=== PATIENT | male | born 1940 | race Two or more races ===

== ENCOUNTER 2018-06-04 17:37 | Emergency (ER) | payer MEDICARE, OTHER ==
[~2018-06-04] VITALS: Ht 167.6 cm; Wt 59.6 kg
[~2018-06-04 17:37] MED LIST: ALBU18HF INH; AMLO-150 PO; AMOX1TAB12 PO; CARV3.122 PO; DOCU-131 PO; DOXY100T PO; ENOX40SY4 SQ; ERGO500017 PO; GLIP2.5T16 PO; HYDR-3240 PO; IPRA3AMP30 INH; LINA5TAB PO; LISI-170 PO; METH500T7 PO; OMEP-110 PO; OXYC5TAB2 PO; SIMV20TA PO; TAMS0.4C2 PO; TRAM50TA2 PO
--- NOTE | 2018-06-04 18:07 | NUR ---
pt to ed with daughter for glf yesterday morning at 0800. pt tripped and fell on hip. pt currently in xray. daughter able to give accurate history of event. awaiting md assessment and xray results at this time.
--- NOTE | 2018-06-04 18:35 | NUR ---
md to bedside for assessment.
[2018-06-04] MEDS ORDERED: ONDANSETRON ODT 4 MG ONE (18:50)
[2018-06-04] MEDS ORDERED: HYDROcodone/APAP 5/325 TABLET ONE (18:50)
--- NOTE | 2018-06-04 18:55 | NUR ---
pt medicated per mar. no needs at this time.
[2018-06-04] MEDS ORDERED: ONDANSETRON ODT 4 MG PO ONE (19:00)
[2018-06-04] MEDS ORDERED: HYDROcodone/APAP 5/325 TABLET PO ONE (19:00)
--- NOTE | 2018-06-04 19:41 | NUR ---
pt resting in bed. no needs at this time. all results back. chart up for recheck.
--- NOTE | 2018-06-04 20:05 | NUR ---
pt to ct at this time.
--- NOTE | 2018-06-04 20:17 | NUR ---
pt back from ct.
--- NOTE | 2018-06-04 21:00 | NUR ---
all results back at this time. chart up for recheck. pt resting in room with daughter at bedside. no needs at this time.
[2018-06-04 21:17] VITALS: BP 128/78
--- NOTE | 2018-06-04 21:55 | NUR ---
md to bedside for updates.
[2018-06-04] MEDS ORDERED: LIDODERM 5% PATCH TD ONE (22:00)
== END 2018-06-04 22:16 | disposition home or self-care (01) ==
LOC: ED 19:34
DX: G89.11 Acute pain due to trauma (principal); M54.5 Low back pain; E11.9 Type 2 diabetes mellitus without complications; I10 Essential (primary) hypertension; F17.200 Nicotine dependence, unspecified, uncomplicated; W01.0XXA Fall on same level from slipping, tripping and stumbling without subsequent striking against object, initial encounter; Y93.89 Activity, other specified; Y92.094 Garage of other non-institutional residence as the place of occurrence of the external cause; Y99.8 Other external cause status
CPT/HCPCS: 72110; 72131; 72192; 72220; 99284; Q0162

== ENCOUNTER 2020-02-04 12:37 | Emergency (ER) | payer MEDICARE, OTHER ==
[~2020-02-04] VITALS: Ht 162.6 cm; Wt 64.0 kg
[2020-02-04 13:15] LABS: BASOPHILS % (AUTO) 1 % (0-1); EOSINOPHILS % (AUTO) 0 % (1-7); LYMPHOCYTES % (AUTO) 6 % (22-44); MEAN CORPUSCULAR HEMOGLOBIN 30.9 pg (27.5-34.5); MEAN PLATELET VOLUME 7.9 fL (7.4-10.4); MONOCYTES % (AUTO) 5 % (2-9); NEUTROPHILS % (AUTO) 89 % (42-75); PLATELET COUNT 212 x10^3/uL (130-400); RED BLOOD COUNT 3.76 x10^6/uL (4.38-5.82); RED CELL DISTRIBUTION WIDTH 14.5 % (9.4-14.8)
[2020-02-04 13:17] LABS: MD NO
[2020-02-04 13:28] LABS: ALANINE AMINOTRANSFERASE 16 U/L (12-78); ALBUMIN 3.4 g/dL (3.4-5.0); ANION GAP 7 mmol/L (5-15); CHLORIDE 112 mmol/L (98-107)
[2020-02-04 13:30] LABS: ALKALINE PHOSPHATASE 78 U/L (45-117); BILIRUBIN,TOTAL 0.8 mg/dL (0.2-1.0); TOTAL PROTEIN 7.3 g/dL (6.4-8.2)
--- NOTE | 2020-02-04 14:15 | NUR ---
[employer] HELPER: PT TO ROOM FROM LOBBY VIA W/C
--- NOTE | 2020-02-04 15:11 | NUR ---
BLADDER SCANNER 169 ML
--- NOTE | 2020-02-04 15:13 | NUR ---
PT TO ROOM 18 W/ C/O DRIBBLING URINE AND HEMATURIA. PER FAMILY MEMBER PT HAS HX PROSTATE ISSUES. PT RESTING ON GURNEY. NADN. MONITORS IN PLACE. VSS. ERP DR. BREWER NOTIFIED OF PT BLADDER SCANNER RESULTS.
--- NOTE | 2020-02-04 15:22 | NUR ---
PER ERP DR. BREWER HOLD OFF ON PADILLA CATHETER INSERTION. NEW ORDERS FOR IVF AND CT.
[2020-02-04] MEDS ORDERED: SODIUM CHLORIDE 0.9% 1,000ML IVBOLUS ONE (15:30)
[2020-02-04] MEDS ORDERED: SODIUM CHLORIDE FLUSH 10ML SYR IVF ONE (15:30)
--- NOTE | 2020-02-04 15:58 | NUR ---
PT TAKEN TO CT IN STABLE CONDITION.
--- NOTE | 2020-02-04 16:36 | NUR ---
PT BLADDER SCANNER AFTER 1L NS 218 ML. ERP AWARE. PADILLA TO BE PLACED.
[2020-02-04] MEDS ORDERED: LIDOCAINE 2%,20 ML JEL.PF.APP MM ONE (17:05)
--- NOTE | 2020-02-04 17:24 | NUR ---
PT RESTING ON GURRISSA. NADN. VSS. PADILLA INSERTED PER ERP. PT YEVGENIY WELL.
[2020-02-04 17:46] LABS: MICROSCOPIC AUTO
[2020-02-04 18:26] VITALS: BP 161/71
--- NOTE | 2020-02-04 18:26 | NUR ---
PT RESTING ON GURNEY. NADN. VSS. PT PADILLA NOTED TO HAVE BLOOD TINGED URINE AND MILD DARK RED BLEEDING AROUND PADILLA INSERTION SITE AROUND PENIS. ERP DR. BREWER AT BEDSIDE FOR ASSESSMENT. UROLOGY TO BE CONSULTED.
[2020-02-04] MEDS ORDERED: SULFAMETH./TRIMETHOPRIM DS 800MG/160MG TABLET PO ONE (19:00)
== END 2020-02-04 18:58 | disposition home or self-care (01) ==
LOC: ED 14:57
DX: R31.0 Gross hematuria (principal); R33.9 Retention of urine, unspecified; I10 Essential (primary) hypertension; E11.65 Type 2 diabetes mellitus with hyperglycemia; E87.5 Hyperkalemia; F17.200 Nicotine dependence, unspecified, uncomplicated
CPT/HCPCS: 36415; 51702; 74176; 80053; 81001; 85025; 87077; 87086; 87186; 96360; 99285; J7030

== ENCOUNTER 2020-02-10 07:14 | Emergency (ER) | payer MEDICARE ==
[~2020-02-10] VITALS: Ht 160 cm; Wt 63.6 kg
[2020-02-10] MEDS ORDERED: MORPHINE SULFATE 4 MG/ML, 1ML IVPush PRN (08:00)
[2020-02-10] MEDS ORDERED: ONDANSETRON ODT 4 MG PO ONE (08:00)
[2020-02-10] MEDS ORDERED: SODIUM CHLORIDE FLUSH 10ML SYR IVF ONE (08:00)
--- NOTE | 2020-02-10 08:01 | NUR ---
IV PLACED. PT TO IMAGING PRIOR TO BEING MEDICATED.
[2020-02-10 08:04] LABS: BASOPHILS % (AUTO) 1 % (0-1); EOSINOPHILS % (AUTO) 7 % (1-7); LYMPHOCYTES % (AUTO) 11 % (22-44); MEAN CORPUSCULAR HEMOGLOBIN 30.7 pg (27.5-34.5); MEAN CORPUSCULAR HGB CONC 32.8 g/dL (33.2-36.2); MEAN PLATELET VOLUME 7.4 fL (7.4-10.4); MONOCYTES % (AUTO) 8 % (2-9); NEUTROPHILS % (AUTO) 74 % (42-75); PLATELET COUNT 307 x10^3/uL (130-400); RED CELL DISTRIBUTION WIDTH 14.5 % (9.4-14.8)
[2020-02-10] MEDS ORDERED: ONDANSETRON ODT 4 MG ONE (08:04)
[2020-02-10] MEDS ORDERED: MORPHINE SULFATE 4 MG/ML, 1ML ONE (08:05)
[2020-02-10 08:16] LABS: ALANINE AMINOTRANSFERASE 18 U/L (12-78); ALBUMIN 3.1 g/dL (3.4-5.0); ANION GAP 5 mmol/L (5-15); CHLORIDE 113 mmol/L (98-107); CREATININE 2.94 mg/dL (0.7-1.3)
[2020-02-10 08:19] LABS: ALKALINE PHOSPHATASE 79 U/L (45-117); BILIRUBIN,TOTAL 0.4 mg/dL (0.2-1.0); TOTAL PROTEIN 7.7 g/dL (6.4-8.2)
[2020-02-10 08:27] LABS: MD SCAN
--- NOTE | 2020-02-10 08:35 | NUR ---
PT RETURNED FROM IMAGING, DAUGHTER AT BEDSIDE. MEDICATED PER EMAR. PROVIDED WARM BLANKETS, FALL PRECAUTIONS IN PLACE, CALL LIGHT WITHIN REACH. NO ADDITIONAL NEEDS AT THIS TIME
--- NOTE | 2020-02-10 08:59 | NUR ---
PT AND DAUGHTER GIVEN IS INSTRUCTION. PT ABLE TO DEMONSTRATE PROPER USE. NO ADDITONAL QUESTIONS OR NEEDS AT THIS TIME.
[2020-02-10 09:32] VITALS: BP 130/55
--- NOTE | 2020-02-10 09:33 | NUR ---
Patient and daughter given discharge instructions and they have confirmed that they understand the instructions. Patient in wheelchair to d/c desk. Pt states pain has improved and is "gone".
== END 2020-02-10 09:39 | disposition home or self-care (01) ==
LOC: ED 07:49
DX: S22.41XA Multiple fractures of ribs, right side, initial encounter for closed fracture (principal); R94.31 Abnormal electrocardiogram [ECG] [EKG]; E11.65 Type 2 diabetes mellitus with hyperglycemia; I10 Essential (primary) hypertension; W01.0XXA Fall on same level from slipping, tripping and stumbling without subsequent striking against object, initial encounter; Y93.89 Activity, other specified; Y92.89 Other specified places as the place of occurrence of the external cause; Y99.8 Other external cause status
CPT/HCPCS: 36415; 71101; 72072; 80053; 85025; 93005; 96374; 99285; J2270; Q0162

== ENCOUNTER 2020-08-06 09:31 | Inpatient (IN) | payer MEDICARE ==
[~2020-08-06] VITALS: Ht 165.1 cm; Wt 58.0 kg
[~2020-08-06 09:31] MED LIST changes: +CEFD300C37 PO; +FINA5TAB4 PO; +GLIP2.5T3 PO; +HYDR-2214 PO; -HYDR-3240 PO; +LISI-167 PO; +METH-639 PO; -METH500T7 PO
--- NOTE | 2020-08-06 11:42 | NUR ---
STONE LAYER: PT TO ROOM FROM LOBBY VIA W/C
--- NOTE | 2020-08-06 11:47 | NUR ---
PT TO ROOM 12 VIA WC W/ C/O LEAKING PADILLA CATHETER. PER PT DAUGHTER PT HAS BEEN LEAKING THROUGH THE PADILLA BAG AND SHE IS UNAWARE FROM WHERE. STATES WHEN SHE CHECKS HIM THERE IS NO LEAKAGE FROM THE BAG. PT HAS NOT HAD ANY UO SINCE THIS AM. PT SHOWED UP WITHOUT PADILLA BAG. EDUCATED ON IMPORTANCE OF CLOSED SYSTEM TO PREVENT UTI. PT DAUGHTER VERBALIZES UNDERSTANDING. ERP DR. ALSTON AT BEDSIDE FOR EVAL.
[2020-08-06] MEDS ORDERED: SODIUM CHLORIDE FLUSH 10ML SYR IVF ONE (12:00)
[2020-08-06] MEDS ORDERED: SODIUM CHLORIDE 0.9% 1,000ML IVBOLUS ONE (12:00)
[2020-08-06 12:38] LABS: BASOPHILS % (AUTO) 1 % (0-1); EOSINOPHILS % (AUTO) 15 % (1-7); LYMPHOCYTES % (AUTO) 22 % (22-44); MEAN CORPUSCULAR HEMOGLOBIN 30.3 pg (27.5-34.5); MEAN PLATELET VOLUME 7.5 fL (7.4-10.4); MONOCYTES % (AUTO) 6 % (2-9); NEUTROPHILS % (AUTO) 56 % (42-75); PLATELET COUNT 327 x10^3/uL (130-400); RED BLOOD COUNT 4.08 x10^6/uL (4.38-5.82); RED CELL DISTRIBUTION WIDTH 15.2 % (9.4-14.8)
[2020-08-06 12:53] LABS: ALBUMIN 3.6 g/dL (3.4-5.0); CALCIUM 9.3 mg/dL (8.5-10.1); CHLORIDE 118 mmol/L (98-107); CREATININE 2.04 mg/dL (0.7-1.3)
[2020-08-06 13:06] LABS: MICROSCOPIC INDICATED
[2020-08-06 13:16] LABS: ANION GAP 3 mmol/L (5-15)
--- NOTE | 2020-08-06 13:24 | NUR ---
PT CHART REVIEWED AND PLACED FOR RECHECK.
[2020-08-06] MEDS ORDERED: CEFTRIAXONE PMX 1GM/50ML 50 ML IV ONE (14:00)
[2020-08-06] MEDS ORDERED: CEFTRIAXONE PMX 1GM/50ML 50 ML ONE (14:10)
[2020-08-06] MEDS ORDERED: PIOG15TA69 PO (14:21)
--- NOTE | 2020-08-06 14:21 | NUR ---
PT RESTING ON ARCHIE. KENNA. VSS. AWARE OF POC FOR ADMIT AND PT IS AGREEABLE.
--- NOTE | 2020-08-06 14:59 | NUR ---
REPORT GIVEN TO LACY PAYNE RN. ALL QUESTIONS ANSWERED. AWAITING PT TRANSPORT.
--- NOTE | 2020-08-06 15:14 | NUR ---
PT RESTING ON GURNEY. NADN. JOHNSON.
[2020-08-06] MEDS ORDERED: CEFTRIAXONE PMX 1GM/50ML 50 ML IV SCH (15:30)
[2020-08-06] MEDS ORDERED: ACETAMINOPHEN 325 MG TABLET PO PRN (15:30)
[2020-08-06] MEDS ORDERED: ONDANSETRON 2MG/ML, 2ML IVPush PRN (15:30)
[2020-08-06] MEDS ORDERED: ONDANSETRON ODT 4 MG PO PRN (15:30)
[2020-08-06] MEDS ORDERED: POLYETHYLENE GLYCOL 17 GM PACKET PO PRN (15:30)
[2020-08-06] MEDS ORDERED: NS + 20MEQ KCL 1,000 ML IV SCH (15:30)
[2020-08-06 16:11] VITALS: BP 172/74
[2020-08-06] MEDS: SODIUM CHLORIDE 0.9% 1,000 ML IV SCH ×2 (16:21→20:37)
[2020-08-06] MEDS: HEPARIN 5,000 UNITS/ML, 1ML SQ SCH ×2 (16:21→22:32)
[2020-08-06 20:26] VITALS: BP 145/65
[2020-08-06] MEDS: TAMSULOSIN 0.4 MG CAP.ER.24H PO SCH (20:41)
[2020-08-06] MEDS: SIMVASTATIN 20 MG TABLET PO SCH (20:42)
[2020-08-06] MEDS: CEFTRIAXONE PMX 1GM/50ML 50 ML IV SCH (22:18)
[2020-08-07 04:27] VITALS: BP 155/66
[2020-08-07 06:07] LABS: BASOPHILS % (AUTO) 1 % (0-1); CHLORIDE 119 mmol/L (98-107); EOSINOPHILS % (AUTO) 13 % (1-7); LYMPHOCYTES % (AUTO) 19 % (22-44); MEAN CORPUSCULAR HEMOGLOBIN 30.2 pg (27.5-34.5); MEAN CORPUSCULAR HGB CONC 32.9 g/dL (33.2-36.2); MEAN PLATELET VOLUME 7.7 fL (7.4-10.4); MONOCYTES % (AUTO) 6 % (2-9); NEUTROPHILS % (AUTO) 61 % (42-75); PLATELET COUNT 301 x10^3/uL (130-400); RED CELL DISTRIBUTION WIDTH 15.1 % (9.4-14.8)
[2020-08-07 06:15] LABS: ALANINE AMINOTRANSFERASE 9 U/L (12-78); ALBUMIN 2.9 g/dL (3.4-5.0); ALKALINE PHOSPHATASE 85 U/L (45-117); ANION GAP 2 mmol/L (5-15); BILIRUBIN,TOTAL 0.3 mg/dL (0.2-1.0); CALCIUM 8.5 mg/dL (8.5-10.1); CREATININE 1.57 mg/dL (0.7-1.3); TOTAL PROTEIN 6.7 g/dL (6.4-8.2)
[2020-08-07 07:36] VITALS: BP 154/73
[2020-08-07] MEDS: HEPARIN 5,000 UNITS/ML, 1ML SQ SCH ×2 (07:48→17:20)
[2020-08-07] MEDS: TAMSULOSIN 0.4 MG CAP.ER.24H PO SCH ×2 (09:25→20:41)
[2020-08-07] MEDS: SENNA/DOCUSATE TABLET PO SCH (09:25)
[2020-08-07] MEDS: FINASTERIDE 5 MG TABLET PO SCH (09:25)
[2020-08-07] MEDS ORDERED: DEXTROSE 50%, 50ML SYRINGE IVPush ONE (10:30)
[2020-08-07] MEDS ORDERED: CALCIUM GLUCONATE 0.46MEQ/1ML IVPush ONE (10:30)
[2020-08-07] MEDS ORDERED: INSULIN REGULAR 100 UNITS/ML, 3ML VIAL IVPush ONE (10:45)
[2020-08-07] MEDS ORDERED: CALCIUM GLUCONATE 4.6 MEQ in SODIUM CHLORIDE 0.9% 50 ML IV ONE (11:00)
[2020-08-07] MEDS ORDERED: SODIUM POLYSTYRENE SULFONATE ORAL SUSP PO ONE (11:00)
[2020-08-07] MEDS: SODIUM CHLORIDE 0.9% 1,000 ML IV SCH ×2 (11:09→20:41)
[2020-08-07 12:53] VITALS: BP 115/65
[2020-08-07 19:33] VITALS: BP 120/71
[2020-08-07] MEDS: SIMVASTATIN 20 MG TABLET PO SCH (20:41)
[2020-08-07] MEDS: CEFTRIAXONE PMX 1GM/50ML 50 ML IV SCH (22:42)
[2020-08-08 00:37] VITALS: BP 150/72
[2020-08-08] MEDS: HEPARIN 5,000 UNITS/ML, 1ML SQ SCH ×3 (01:14→17:19)
[2020-08-08 05:59] LABS: ANION GAP 3 mmol/L (5-15); CALCIUM 8.6 mg/dL (8.5-10.1); CHLORIDE 123 mmol/L (98-107); CREATININE 1.55 mg/dL (0.7-1.3)
[2020-08-08] MEDS: SODIUM CHLORIDE 0.9% 1,000 ML IV SCH (08:00)
[2020-08-08 08:24] VITALS: BP 187/79
[2020-08-08] MEDS: TAMSULOSIN 0.4 MG CAP.ER.24H PO SCH (08:26)
[2020-08-08] MEDS: SENNA/DOCUSATE TABLET PO SCH (08:26)
[2020-08-08] MEDS: FINASTERIDE 5 MG TABLET PO SCH (08:26)
[2020-08-08 09:24] VITALS: BP 181/91
[2020-08-08] MEDS ORDERED: ENALAPRILAT 1.25 MG/ML, 2ML IV PRN (09:30)
[2020-08-08] MEDS ORDERED: SULF-23 PO ×3 (09:34→10:53)
[2020-08-08] MEDS ORDERED: ENALAPRILAT 1.25 MG/ML, 1ML ONE (09:48)
[2020-08-08] MEDS ORDERED: LISINOPRIL 10 MG TABLET PO SCH (10:00)
[2020-08-08 10:27] VITALS: BP 161/68
[2020-08-08 10:29] VITALS: BP 160/75
[2020-08-08 13:53] VITALS: BP 163/76
[2020-08-12] MEDS ORDERED: SULF-23 PO (14:16)
== END 2020-08-08 17:30 | disposition home or self-care (01) | DRG 698 ==
LOC: ED 13:54 → SUATTDRO 14:21 → EDIP 14:30 → 3N 15:31
PROVIDERS: ADMIT Family Medicine; ATTEND Internal Medicine
PROC: 0T2BX0Z Change Drainage Device in Bladder, External Approach (ICD-10-PCS; principal; 2020-08-06)
DX: T83.518A Infection and inflammatory reaction due to other urinary catheter, initial encounter (principal); J18.0 Bronchopneumonia, unspecified organism; N17.9 Acute kidney failure, unspecified; N30.01 Acute cystitis with hematuria; T83.031A Leakage of indwelling urethral catheter, initial encounter; E11.22 Type 2 diabetes mellitus with diabetic chronic kidney disease; I12.9 Hypertensive chronic kidney disease with stage 1 through stage 4 chronic kidney disease, or unspecified chronic kidney disease; N18.30 Chronic kidney disease, stage 3 unspecified; B96.20 Unspecified Escherichia coli [E. coli] as the cause of diseases classified elsewhere; D64.9 Anemia, unspecified; E87.5 Hyperkalemia; F17.200 Nicotine dependence, unspecified, uncomplicated; Z66 Do not resuscitate; N40.0 Benign prostatic hyperplasia without lower urinary tract symptoms; Y84.6 Urinary catheterization as the cause of abnormal reaction of the patient, or of later complication, without mention of misadventure at the time of the procedure; Y92.89 Other specified places as the place of occurrence of the external cause; Z86.73 Personal history of transient ischemic attack (TIA), and cerebral infarction without residual deficits; Z82.49 Family history of ischemic heart disease and other diseases of the circulatory system; Z83.3 Family history of diabetes mellitus
CPT/HCPCS: 36415; 71045; 80048; 80053; 81001; 82040; 83605; 84132; 84145; 85025; 87040; 87077; 87086; 87186; 96361; 96365; G0378; J0696; J1644; J1815; J2405; J0610; J7030

== ENCOUNTER 2020-08-12 11:26 | Emergency (ER) | payer MEDICARE ==
[~2020-08-12] VITALS: Ht 162.6 cm; Wt 65.0 kg
[~2020-08-12 11:26] MED LIST changes: +PIOG15TA69 PO; +SULF1TAB24 PO
--- NOTE | 2020-08-12 12:31 | NUR ---
PT C/O BLADDER PAIN, DISTENTION, NO OUTPUT FROM INDWELLING CATHETER PLACED THREE WEEKS AGO. ATTEMPT TO FLUSH CATHETER BUT UNABLE TO AND INCREASED PAIN WITH ATTEMPT. OLD CATHETER REMOVED, NEW CATHETER PLACED WITH IMMEDIATE URINE OUTPUT. SOME BLOOD AND SMALL CLOTS INITIALLY, CLEARED TO DARK YELLOW URINE.
[2020-08-12 13:02] VITALS: BP 121/71
[2020-08-12] MEDS ORDERED: SULF1TAB24 PO (14:16)
== END 2020-08-12 13:18 | disposition home or self-care (01) ==
LOC: ED 13:00
DX: R33.9 Retention of urine, unspecified (principal); I10 Essential (primary) hypertension; E11.9 Type 2 diabetes mellitus without complications
CPT/HCPCS: 51702; 99284

== ENCOUNTER 2020-08-12 13:32 | Outpatient (CLI) | payer MEDICARE ==
[2020-08-12] MEDS ORDERED: SULF1TAB24 PO (14:16)
[2020-08-12 14:51] LABS: INTERNATIONAL NORMALIZED RATIO 1.32 (0.93-1.1)
[2020-08-12 14:54] LABS: ALANINE AMINOTRANSFERASE 14 U/L (12-78); ALBUMIN 3.4 g/dL (3.4-5.0); ANION GAP 4 mmol/L (5-15); CALCIUM 9.2 mg/dL (8.5-10.1); CHLORIDE 113 mmol/L (98-107); CREATININE 2.42 mg/dL (0.7-1.3)
[2020-08-12 14:56] LABS: ALKALINE PHOSPHATASE 95 U/L (45-117); BILIRUBIN,TOTAL 0.4 mg/dL (0.2-1.0); TOTAL PROTEIN 7.5 g/dL (6.4-8.2)
== END 2020-08-12 23:59 | disposition home or self-care (01) ==
LOC: STAR 13:32
PROVIDERS: ATTEND Urology
DX: Z01.818 Encounter for other preprocedural examination (principal); R39.198 Other difficulties with micturition; Z20.822 Contact with and (suspected) exposure to COVID-19
CPT/HCPCS: 36415; 80053; 85610; 93005; U0003

== ENCOUNTER 2020-08-17 13:06 | Inpatient (IN) | payer MEDICARE ==
[~2020-08-17] VITALS: Ht 160 cm; Wt 51.7 kg
[2020-08-17 14:00] VITALS: BP 150/70
[2020-08-17] MEDS ORDERED: SODIUM CHLORIDE 0.9% 1,000 ML IV SCH ×2 (14:00→20:00)
[2020-08-17] MEDS ORDERED: CHLORHEXIDINE 15 ML UDC PO ONE (14:00)
[2020-08-17] MEDS ORDERED: CHLORHEXIDINE 15 ML UDC ONE (14:01)
[2020-08-17] MEDS ORDERED: CEFTRIAXONE 1,000 MG ONE (15:55)
[2020-08-17] MEDS ORDERED: FENTANYL PF 100 MCG/2ML ONE ×2 (15:56→16:22)
[2020-08-17] MEDS ORDERED: FENTANYL PF 100 MCG/2ML IV PRN (16:30)
[2020-08-17] MEDS ORDERED: PROMETHAZINE 25 MG SUPP PR PRN (16:30)
[2020-08-17] MEDS ORDERED: ONDANSETRON 2MG/ML, 2ML IVPush PRN ×2 (16:30→20:00)
[2020-08-17] MEDS ORDERED: ACETAMINOPHEN 325 MG TABLET PO PRN ×2 (16:30→20:30)
[2020-08-17] MEDS ORDERED: PROMETHAZINE 25 MG/ML, 1ML IVPush PRN (16:30)
[2020-08-17] MEDS ORDERED: hydrALAzine 20 MG/ML, 1ML IV PRN (16:30)
[2020-08-17] MEDS ORDERED: LABETALOL 5MG/ML, 20ML IV PRN (16:30)
[2020-08-17] MEDS ORDERED: OXYcodone 5 MG/5 ML ORAL.SOL UDC PO PRN (16:30)
[2020-08-17] MEDS ORDERED: CEFAZOLIN 1,000 MG ONE (18:03)
[2020-08-17] MEDS ORDERED: DEXAMETHASONE 4 MG/ML, 1ML ONE (18:03)
[2020-08-17] MEDS ORDERED: PROPOFOL 10 MG/ML, 20ML ONE (18:03)
[2020-08-17] MEDS ORDERED: ONDANSETRON 2MG/ML, 2ML ONE (18:03)
[2020-08-17] MEDS ORDERED: HYDROmorphone 1 MG/ML, 1ML INJ IV PRN (20:00)
[2020-08-17] MEDS ORDERED: OPIUM/BELLADONNA SUPP.RECT 16.2-30 MG PR PRN (20:00)
[2020-08-17] MEDS ORDERED: HYDROcodone/APAP 5/325 TABLET PO PRN (20:30)
[2020-08-17 20:36] VITALS: BP 100/62
[2020-08-17] MEDS: SIMVASTATIN 20 MG TABLET PO SCH (22:30)
[2020-08-18 00:21] VITALS: BP 127/67
[2020-08-18 04:02] VITALS: BP 106/60
[2020-08-18 06:13] LABS: ANION GAP 5 mmol/L (5-15); CALCIUM 8.4 mg/dL (8.5-10.1); CHLORIDE 116 mmol/L (98-107); CREATININE 2.38 mg/dL (0.7-1.3)
[2020-08-18] MEDS ORDERED: CALCIUM GLUCONATE 4.6 MEQ in SODIUM CHLORIDE 0.9% 100 ML IV ONE (07:00)
[2020-08-18] MEDS ORDERED: SODIUM CHLORIDE 0.9% 1,000ML IVBOLUS ONE (07:00)
[2020-08-18 07:27] VITALS: BP 148/71
[2020-08-18] MEDS ORDERED: GLIPizide ER 2.5 MG TABLET PO SCH (08:00)
[2020-08-18] MEDS ORDERED: INSULIN REGULAR 100 UNITS/ML, 3ML VIAL IVPush ONE (08:30)
[2020-08-18] MEDS ORDERED: SODIUM ZIRCONIUM CYCLOSILICATE 10 GM PO ONE (08:30)
[2020-08-18] MEDS ORDERED: DEXTROSE 50%, 50ML SYRINGE IVPush ONE (08:30)
[2020-08-18 08:32] LABS: BASOPHILS % (AUTO) 1 % (0-1); EOSINOPHILS % (AUTO) 0 % (1-7); LYMPHOCYTES % (AUTO) 10 % (22-44); MEAN CORPUSCULAR HEMOGLOBIN 30.7 pg (27.5-34.5); MEAN CORPUSCULAR HGB CONC 33.2 g/dL (33.2-36.2); MEAN PLATELET VOLUME 7.9 fL (7.4-10.4); MONOCYTES % (AUTO) 4 % (2-9); NEUTROPHILS % (AUTO) 85 % (42-75); PLATELET COUNT 281 x10^3/uL (130-400); RED BLOOD COUNT 3.26 x10^6/uL (4.38-5.82); RED CELL DISTRIBUTION WIDTH 15.5 % (9.4-14.8)
[2020-08-18 08:33] LABS: TROPONIN I < 0.015 ng/mL (0.000-0.045)
[2020-08-18 08:54] LABS: MD SCAN
[2020-08-18] MEDS ORDERED: PIOGLITAZONE 15 MG TABLET PO SCH (09:00)
[2020-08-18] MEDS: SODIUM BICARBONATE 8.4% 150 MEQ in SODIUM CHLORIDE 0.45% 1,000 ML IV SCH ×2 (09:12→20:00)
[2020-08-18] MEDS ORDERED: INSULIN LISPRO 100 UNITS/ML, PEN SQ-INSULIN SCH (11:00)
[2020-08-18 11:07] LABS: ANION GAP 7 mmol/L (5-15); CALCIUM 8.5 mg/dL (8.5-10.1); CHLORIDE 114 mmol/L (98-107); CREATININE 2.27 mg/dL (0.7-1.3)
[2020-08-18 13:45] VITALS: BP 122/64
[2020-08-18 15:28] LABS: TROPONIN I < 0.015 ng/mL (0.000-0.045)
[2020-08-18 15:35] LABS: ANION GAP 5 mmol/L (5-15); CALCIUM 8.4 mg/dL (8.5-10.1); CHLORIDE 114 mmol/L (98-107); CREATININE 2.19 mg/dL (0.7-1.3)
[2020-08-18] MEDS: INSULIN LISPRO 100 UNITS/ML, PEN SQ-INSULIN SCH ×2 (16:36→21:31)
[2020-08-18] MEDS: CEFTRIAXONE 1,000 MG in DEXTROSE 5% 50 ML IVPB SCH (16:36)
[2020-08-18 19:27] VITALS: BP 112/60
[2020-08-18] MEDS ORDERED: SODIUM BICARBONATE 8.4% 100 MEQ in DEXTROSE 5% 1,000 ML IV SCH (21:00)
[2020-08-18] MEDS: SIMVASTATIN 20 MG TABLET PO SCH (21:59)
[2020-08-19 01:48] VITALS: BP 163/77
[2020-08-19 05:24] LABS: ANION GAP 5 mmol/L (5-15); CALCIUM 8.3 mg/dL (8.5-10.1); CHLORIDE 110 mmol/L (98-107); CREATININE 1.99 mg/dL (0.7-1.3)
[2020-08-19 05:36] LABS: BASOPHILS % (AUTO) 0 % (0-1); EOSINOPHILS % (AUTO) 9 % (1-7); LYMPHOCYTES % (AUTO) 18 % (22-44); MEAN CORPUSCULAR HEMOGLOBIN 31.1 pg (27.5-34.5); MEAN CORPUSCULAR HGB CONC 34.1 g/dL (33.2-36.2); MONOCYTES % (AUTO) 6 % (2-9); NEUTROPHILS % (AUTO) 67 % (42-75); PLATELET COUNT 260 x10^3/uL (130-400); RED BLOOD COUNT 3.03 x10^6/uL (4.38-5.82); RED CELL DISTRIBUTION WIDTH 15.3 % (9.4-14.8)
[2020-08-19 06:30] LABS: MD SCAN
[2020-08-19 07:47] VITALS: BP 160/69
[2020-08-19] MEDS ORDERED: SODIUM ZIRCONIUM CYCLOSILICATE 10 GM PO ONE ×2 (09:00→21:00)
[2020-08-19] MEDS: INSULIN LISPRO 100 UNITS/ML, PEN SQ-INSULIN SCH ×4 (09:39→21:25)
[2020-08-19 13:19] VITALS: BP 167/74
[2020-08-19 15:08] LABS: ANION GAP 4 mmol/L (5-15); CALCIUM 8.5 mg/dL (8.5-10.1); CHLORIDE 108 mmol/L (98-107); CREATININE 1.95 mg/dL (0.7-1.3)
[2020-08-19] MEDS: CEFTRIAXONE 1,000 MG in DEXTROSE 5% 50 ML IVPB SCH (16:45)
[2020-08-19] MEDS ORDERED: LORazepam 0.5MG TABLET PO ONE (18:30)
[2020-08-19 20:08] VITALS: BP 114/70
[2020-08-19] MEDS: SIMVASTATIN 20 MG TABLET PO SCH (21:25)
[2020-08-20 01:02] VITALS: BP 145/79
[2020-08-20 05:49] LABS: ANION GAP 6 mmol/L (5-15); CALCIUM 8.7 mg/dL (8.5-10.1); CHLORIDE 111 mmol/L (98-107)
[2020-08-20] MEDS: INSULIN LISPRO 100 UNITS/ML, PEN SQ-INSULIN SCH ×2 (07:00→12:41)
[2020-08-20 07:03] LABS: BASOPHILS % (AUTO) 1 % (0-1); EOSINOPHILS % (AUTO) 14 % (1-7); LYMPHOCYTES % (AUTO) 19 % (22-44); MEAN CORPUSCULAR HEMOGLOBIN 30.7 pg (27.5-34.5); MEAN CORPUSCULAR HGB CONC 33.3 g/dL (33.2-36.2); MEAN PLATELET VOLUME 7.4 fL (7.4-10.4); MONOCYTES % (AUTO) 6 % (2-9); NEUTROPHILS % (AUTO) 61 % (42-75); PLATELET COUNT 282 x10^3/uL (130-400); RED BLOOD COUNT 3.31 x10^6/uL (4.38-5.82); RED CELL DISTRIBUTION WIDTH 15.3 % (9.4-14.8)
[2020-08-20 07:04] LABS: MD NO
[2020-08-20 07:40] VITALS: BP 150/80
[2020-08-20] MEDS ORDERED: FINA5TAB4 PO (12:11)
[2020-08-20 13:39] VITALS: BP 125/72
== END 2020-08-20 16:35 | disposition home or self-care (01) | DRG 713 ==
LOC: OR 13:06 → 4NE 19:30 → OR 20:10 → 4NE 20:11 → 4EST 08-18 09:57
PROVIDERS: ADMIT Urology; ATTEND Internal Medicine
PROC: 0VT08ZZ Resection of Prostate, Via Natural or Artificial Opening Endoscopic (ICD-10-PCS; principal; 2020-08-17 15:00)
DX: N40.1 Benign prostatic hyperplasia with lower urinary tract symptoms (principal); N17.9 Acute kidney failure, unspecified; E87.2 Acidosis; E11.22 Type 2 diabetes mellitus with diabetic chronic kidney disease; E78.5 Hyperlipidemia, unspecified; I70.1 Atherosclerosis of renal artery; E87.5 Hyperkalemia; I12.9 Hypertensive chronic kidney disease with stage 1 through stage 4 chronic kidney disease, or unspecified chronic kidney disease; N18.30 Chronic kidney disease, stage 3 unspecified; Z96.641 Presence of right artificial hip joint; Z79.4 Long term (current) use of insulin; Z83.3 Family history of diabetes mellitus; Z86.73 Personal history of transient ischemic attack (TIA), and cerebral infarction without residual deficits; Z87.440 Personal history of urinary (tract) infections; Z87.891 Personal history of nicotine dependence; Z90.79 Acquired absence of other genital organ(s); Z90.49 Acquired absence of other specified parts of digestive tract; Z80.9 Family history of malignant neoplasm, unspecified
CPT/HCPCS: 36415; 80048; 82962; 83735; 84100; 84484; 85014; 85018; 85025; 88305; 93005; G0378; J0610; J0690; J0696; J1100; J1815; J2405; J2704; J3010; J7070; J7030